=== PATIENT | female | born 1970 | race American Indian/Alaskan Native ===

== ENCOUNTER 2020-09-11 21:41 | Emergency (ER) | payer BC ==
[2020-09-11 21:55] VITALS: BP 137/63
--- NOTE | 2020-09-11 22:20 | Emergency Department Report ---
ED General Adult HPI - General Chief complaint: Skin Rash Stated complaint: SPIDER BITE/RT LEG Source: patient Mode of arrival: Ambulatory Limitations: No Limitations - History of Present Illness Initial comments: Patient is a 49-year-old -[place] female with a history of morbid obesity, hypertension and asthma who presents to the ED with acute onset persistent painful, swollen, erythematous maculopapular rash on anterior right lower leg for the last 6 days. Patient states that the rash initially started as a small papule but which has since gotten worse. Patient states that the pain is especially worse with movement. Patient denies fever, chills, nausea, vomiting, diarrhea, dizziness, syncope, traumatic injury, fall, numbness and tingling or weakness of lower extremities bilaterally. MD Complaint: Painful swollen erythematous maculopapular rash on anterior right lower leg -: Sudden, days(s) (6) Location: lower extremity (Anterior right lower leg) Radiation: non-radiation Severity scale (0 -10): 7 Quality: burning, aching, sharp Consistency: constant Improves with: none Worsens with: movement Associated Symptoms: denies other symptoms, rash (Swollen, painful, erythematous maculopapular nonfluctuant rash on anterior right lower leg). denies: confusion, chest pain, cough, diaphoresis, fever/chills, headaches, loss of appetite, malaise, nausea/vomiting, shortness of breath, syncope, weakness, other Treatments Prior to Arrival: none - Related Data Previous Rx's Medication Instructions Recorded Last Taken Type Ibuprofen [Motrin] 800 mg PO Q8HR PRN #30 tablet 09/11/20 Unknown Rx Sulfamethoxazole/Trimethoprim 1 each PO Q12H #20 tablet 09/11/20 Unknown Rx [Bactrim DS TAB] Allergies Allergy/AdvReac Type Severity Reaction Status Date / Time No Known Allergies Allergy Unverified 09/11/20 21:55 ED Review of Systems ROS: Stated complaint: SPIDER BITE/RT LEG Other details as noted in HPI Constitutional: denies: chills, fever Eyes: denies: eye pain, eye discharge, vision change ENT: denies: ear pain, throat pain Respiratory: denies: cough, shortness of breath, wheezing Cardiovascular: denies: chest pain, palpitations Endocrine: no symptoms reported Gastrointestinal: denies: abdominal pain, nausea, diarrhea Genitourinary: denies: urgency, dysuria, discharge Musculoskeletal: joint swelling, arthralgia (Anterior right lower leg pain due to erythematous maculopapular rash). denies: back pain Skin: rash (Painful, erythematous, swollen maculopapular rash on anterior right lower leg), change in color. denies: lesions Neurological: denies: headache, weakness, paresthesias Psychiatric: denies: anxiety, depression Hematological/Lymphatic: denies: easy bleeding, easy bruising ED Past Medical Hx - Past Medical History Previous Medical History?: Yes Hx Hypertension: Yes Hx Asthma: Yes Additional medical history: herat murmur - Surgical History Past Surgical History?: Yes Additional Surgical History: total hysterectomy - Social History Smoking Status: Never Smoker - Medications Home Medications: Home Medications Medication Instructions Recorded Confirmed Last Taken Type Ibuprofen [Motrin] 800 mg PO Q8HR PRN #30 tablet 09/11/20 Unknown Rx Sulfamethoxazole/Trimethoprim 1 each PO Q12H #20 tablet 09/11/20 Unknown Rx [Bactrim DS TAB] ED Physical Exam - General Limitations: No Limitations General appearance: alert, in no apparent distress - Head Head exam: Present: atraumatic, normocephalic, normal inspection - Eye Eye exam: Present: normal appearance, PERRL, EOMI Pupils: Present: normal accommodation - ENT ENT exam: Present: normal exam, normal orophraynx, mucous membranes moist, TM's normal bilaterally, normal external ear exam - Neck Neck exam: Present: normal inspection, full ROM - Respiratory Respiratory exam: Present: normal lung sounds bilaterally. Absent: respiratory distress, wheezes, rales, rhonchi, chest wall tenderness, accessory muscle use, decreased breath sounds, prolonged expiratory - Cardiovascular Cardiovascular Exam: Present: regular rate, normal rhythm, normal heart sounds. Absent: systolic murmur, diastolic murmur, rubs, gallop - GI/Abdominal GI/Abdominal exam: Present: soft, normal bowel sounds. Absent: tenderness, guarding, hyperactive bowel sounds, hypoactive bowel sounds, organomegaly - Extremities Exam Extremities exam: Present: normal inspection, full ROM, tenderness (Palpable localized anterior right lower leg tenderness due to a mildly swollen erythematous maculopapular nonfluctuant rash), normal capillary refill. Absent: pedal edema, joint swelling, calf tenderness - Back Exam Back exam: Present: normal inspection, full ROM. Absent: tenderness, CVA tenderness (R), CVA tenderness (L), muscle spasm, paraspinal tenderness, vertebral tenderness - Neurological Exam Neurological exam: Present: alert, oriented X3, CN II-XII intact, normal gait, reflexes normal - Psychiatric Psychiatric exam: Present: normal affect, normal mood - Skin Skin exam: Present: warm, dry, intact, rash (Swollen, erythematous, maculopapular nonfluctuant rash on anterior right lower leg with localized tenderness), erythema. Absent: normal color ED Course Vital Signs 09/11/20 21:53 Temperature 98.6 F Pulse Rate 81 Respiratory 22 Rate Blood Pressure 137/63 O2 Sat by Pulse 97 Oximetry ED Medical Decision Making - Medical Decision Making This is a 49-year-old -[place] female with a history of morbid obesity, hypertension and asthma who presents to the ED with acute onset persistent painful, swollen, erythematous maculopapular rash on anterior right lower leg for the last 6 days. Patient states that the rash initially started as a small papule but which has since gotten worse. Patient states that the pain is especially worse with movement. In the ED, patient is alert and oriented x3 and is not in any distress. Patient will discharge home on medications based on physical exam findings of localized anterior right lower leg cellulitis. Patient was advised to follow-up with her primary care physician in 7 to 10 days for reevaluation or return to the ED immediately if symptoms get worse. - Differential Diagnosis Cellulitis; folliculitis; insect bite; cutaneous abscess Critical care attestation.: If time is entered above; I have spent that time in minutes in the direct care of this critically ill patient, excluding procedure time. ED Disposition Clinical Impression: Acute folliculitis, Cellulitis of right lower extremity Disposition: DC-01 TO HOME OR SELFCARE Is pt being admited?: No Does the pt Need Aspirin: No Condition: Stable Instructions: Cellulitis, Adult, [id number], Folliculitis Additional Instructions: Take medications with food, drink plenty of fluids and follow-up with your primary care physician in 7 to 10 days for reevaluation. Return to the ED immediately if symptoms get worse. Prescriptions: Sulfamethoxazole/Trimethoprim [Bactrim DS TAB] 1 each PO Q12H #20 tablet Ibuprofen [Motrin] 800 mg PO Q8HR PRN #30 tablet PRN Reason: Severe pain Referrals: [facility] [Provider Group] - 7-10 days Time of Disposition: 22:21 Print Language: ROMANIAN
== END 2020-09-11 22:55 | disposition home or self-care (01) ==
LOC: ED 21:41
DX: L73.9 Follicular disorder, unspecified (principal); L03.115 Cellulitis of right lower limb; I10 Essential (primary) hypertension; J45.909 Unspecified asthma, uncomplicated; Z98.890 Other specified postprocedural states; Z90.710 Acquired absence of both cervix and uterus; Z79.899 Other long term (current) drug therapy
CPT/HCPCS: 99281

== ENCOUNTER 2021-03-10 18:45 | Emergency (ER) | payer BC ==
--- NOTE | 2021-03-10 20:39 | Emergency Department Report ---
ED Abdominal Pain HPI - General Chief Complaint: Abdominal Pain Stated Complaint: CHEST/ABD PAIN Time Seen by Provider: 03/10/21 20:33 Source: patient Mode of arrival: Ambulatory Limitations: No Limitations - History of Present Illness Initial Comments: A 50-year-old Female with history of obesity, asthma, hypertension, renal stones, and reflux disease patient presents with epigastric pain radiating to right flank x3 days with nausea and vomiting. Patient does have history of renal stones but denies hematuria no dysuria frequency or urgency. Patient states recent diagnosis of COVID on February 17, 2021. Patient denies shortness of breath no wheezing no stridor. Pain is rated at 5/10 exacerbated by movement and p.o. intake. Pain is relieved by nothing tried. Last p.o. intake this evening without nausea vomiting. MD Complaint: abdominal pain, flank pain - Related Data Previous Rx's Medication Instructions Recorded Last Taken Type Sulfamethoxazole/Trimethoprim 1 each PO Q12H #20 tablet 09/11/20 Unknown Rx [Bactrim DS TAB] Ibuprofen [Motrin 800 MG tab] 800 mg PO Q8HR PRN #30 tablet 03/11/21 Unknown Rx Omeprazole 40 mg PO DAILY #20 03/11/21 Unknown Rx Allergies Allergy/AdvReac Type Severity Reaction Status Date / Time No Known Allergies Allergy Verified 03/10/21 20:13 ED Review of Systems ROS: Stated complaint: CHEST/ABD PAIN Other details as noted in HPI Constitutional: denies: chills, fever Eyes: denies: eye pain, eye discharge, vision change ENT: congestion. denies: ear pain, throat pain Respiratory: cough. denies: shortness of breath, stridor, wheezing Cardiovascular: chest pain (epigastric). denies: palpitations, orthopnea, parox ysmal nocturnal dyspnea Endocrine: no symptoms reported Gastrointestinal: abdominal pain, nausea, vomiting. denies: diarrhea, constipation, hematemesis, melena Genitourinary: denies: urgency, dysuria, frequency, hematuria, discharge Musculoskeletal: back pain. denies: myalgia Skin: denies: rash, lesions Neurological: denies: headache, weakness, paresthesias Psychiatric: denies: anxiety, depression Hematological/Lymphatic: denies: easy bleeding, easy bruising ED Past Medical Hx - Past Medical History Hx Hypertension: Yes Hx Asthma: Yes Additional medical history: herat murmur - Surgical History Additional Surgical History: total hysterectomy - Social History Smoking Status: Never Smoker - Medications Home Medications: Home Medications Medication Instructions Recorded Confirmed Last Taken Type Sulfamethoxazole/Trimethoprim 1 each PO Q12H #20 tablet 09/11/20 Unknown Rx [Bactrim DS TAB] Ibuprofen [Motrin 800 MG tab] 800 mg PO Q8HR PRN #30 tablet 03/11/21 Unknown Rx Omeprazole 40 mg PO DAILY #20 03/11/21 Unknown Rx ED Physical Exam - General Limitations: No Limitations General appearance: alert, in no apparent distress - Head Head exam: Present: normocephalic, normal inspection - Eye Eye exam: Present: EOMI Pupils: Present: normal accommodation - ENT ENT exam: Present: mucous membranes moist - Neck Neck exam: Present: normal inspection, full ROM. Absent: tenderness, lymphadenopathy - Respiratory Respiratory exam: Present: normal lung sounds bilaterally. Absent: respiratory distress, wheezes, stridor, chest wall tenderness - Cardiovascular Cardiovascular Exam: Present: regular rate, normal rhythm, normal heart sounds. Absent: systolic murmur, diastolic murmur, rubs, gallop - GI/Abdominal GI/Abdominal exam: Present: soft, tenderness (mild ruq tenderness to deep palpation), normal bowel sounds. Absent: distended, guarding, rebound, rigid, bruit, hernia - Expanded GI/Abdominal Exam Expanded GI/Abdominal exam: Present: Subramanian's sign. Absent: psoas sign, obturator sign, heel tap sign, Rovsing's sign, tenderness at [place]'s Point, ascites - Rectal Rectal exam: Present: deferred - Extremities Exam Extremities exam: Present: normal inspection, full ROM. Absent: tenderness - Back Exam Back exam: Present: normal inspection, full ROM. Absent: CVA tenderness (R), CVA tenderness (L) - Neurological Exam Neurological exam: Present: alert, oriented X3, CN II-XII intact, normal gait - Psychiatric Psychiatric exam: Present: normal affect, normal mood - Skin Skin exam: Present: warm, dry, intact, normal color. Absent: rash ED Course Vital Signs 03/10/21 03/10/21 20:11 23:54 Temperature 98.0 F Pulse Rate 69 Respiratory 18 12 Rate Blood Pressure 130/64 O2 Sat by Pulse 99 Oximetry ED Medical Decision Making - Lab Data Result diagrams: 03/10/21 20:45 03/10/21 20:45 Labs 03/10/21 03/10/21 03/10/21 20:45 20:45 20:45 WBC 7.3 RBC 4.41 Hgb 13.3 Hct 40.6 MCV 92 MCH 30 MCHC 33 RDW 13.4 Plt Count 287 Lymph % (Auto) 30.0 [place] % (Auto) 6.3 Eos % (Auto) 1.6 Baso % (Auto) 0.4 Lymph # (Auto) 2.2 [place] # (Auto) 0.5 Eos # (Auto) 0.1 Baso # (Auto) 0.0 Seg Neutrophils % 61.7 Seg Neutrophils # 4.5 Sodium 142 Potassium 4.3 Chloride 103.3 Carbon Dioxide 26 Anion Gap 17 BUN 13 Creatinine 0.6 Estimated GFR > 60 BUN/Creatinine Ratio 22 Glucose 104 H Calcium 9.1 Total Bilirubin 0.50 AST 15 ALT 13 Alkaline Phosphatase 97 Troponin T < 0.010 Total Protein 7.1 Albumin 4.2 Albumin/Globulin Ratio 1.4 Lipase 14 Urine Color Urine Turbidity Urine pH Ur Specific [place] Urine Protein Urine Glucose (UA) Urine Ketones Urine Blood Urine Nitrite Urine Bilirubin Urine Urobilinogen Ur Leukocyte Esterase Urine WBC (Auto) Urine RBC (Auto) U Epithel Cells (Auto) Urine Mucus 03/10/21 03/10/21 22:53 Unknown WBC RBC Hgb Hct MCV MCH MCHC RDW Plt Count Lymph % (Auto) [place] % (Auto) Eos % (Auto) Baso % (Auto) Lymph # (Auto) [place] # (Auto) Eos # (Auto) Baso # (Auto) Seg Neutrophils % Seg Neutrophils # Sodium Potassium Chloride Carbon Dioxide Anion Gap BUN Creatinine Estimated GFR BUN/Creatinine Ratio Glucose Calcium Total Bilirubin AST ALT Alkaline Phosphatase Troponin T < 0.010 Total Protein Albumin Albumin/Globulin Ratio Lipase Urine Color Yellow Urine Turbidity Clear Urine pH 5.0 Ur Specific [place] 1.026 Urine Protein <15 mg/dl Urine Glucose (UA) Neg Urine Ketones Neg Urine Blood Neg Urine Nitrite Neg Urine Bilirubin Neg Urine Urobilinogen < 2.0 Ur Leukocyte Esterase Neg Urine WBC (Auto) 2.0 Urine RBC (Auto) 2.0 U Epithel Cells (Auto) 1.0 Urine Mucus 1+ - EKG Data EKG shows normal: sinus rhythm, axis, intervals, QRS complexes, ST-T waves Rate: normal - EKG Data When compared to previous EKG there are: previous EKG unavailable Interpretation: normal EKG (NSR No STEMI interp by ed attending ) - Radiology Data Radiology results: report reviewed, image reviewed CHEST 2 VIEWS INDICATION / CLINICAL INFORMATION: chest pain. Pt c/o abd, back and chest pain x 1 week. Pt states today she had all of the symptoms with vomiting and the pain did not go away. hx asthma, htn COMPARISON: None available. FINDINGS: SUPPORT DEVICES: None. HEART / MEDIASTINUM: No significant abnormality. LUNGS / PLEURA: No significant pulmonary or pleural abnormality. No pneumothorax. ADDITIONAL FINDINGS: No significant additional findings. IMPRESSION: 1. No acute findings. Signer Name: Melody Perdomo MD Signed: 03/10/2021 8:53 PM Workstation Name: [id number] Transcribed By: DT Dictated By: Jono Perdomo MD Electronically Authenticated By: Jono Perdomo MD Signed Date/Time: 03/10/212052 - Medical Decision Making Heart score 0, ekg: NSR no STEMI, CXCR normal no infiltrates no opacities. labs are normal, pain is improved, pt is tolerating po intake , plan dc to home with rx, follow up with primary car doctor in 2-3 days , return to emergency if symptoms worsen. pt verbalized agreement and understanding of same. Critical care attestation.: If time is entered above; I have spent that time in minutes in the direct care of this critically ill patient, excluding procedure time. ED Disposition Clinical Impression: Abdominal pain Qualifiers: Abdominal location: epigastric Qualified Code(s): R10.13 - Epigastric pain Disposition: HOME / SELF CARE / HOMELESS Is pt being admited?: No Does the pt Need Aspirin: No Condition: Stable Instructions: Abdominal Pain (ED), Abdominal Pain, Adult, [id number] Additional Instructions: Medications as prescribed, follow-up with your doctor in 2 days. Return to emergency should symptoms worsen. Prescriptions: Ibuprofen [Motrin 800 MG tab] 800 mg PO Q8HR PRN #30 tablet PRN Reason: Severe pain Omeprazole 40 mg PO DAILY #20 Referrals: PRIMARY CARE, [Primary Care Provider] - 3-5 Days Forms: Work/School Release Form(ED)
--- NOTE | 2021-03-10 20:57 | XRay Report ---
CHEST 2 VIEWS INDICATION / CLINICAL INFORMATION: chest pain. Pt c/o abd, back and chest pain x 1 week. Pt states to day she had all of the symptoms with vomiting and the pain did not go away. hx asthma, htn COMPARISON: None available. FINDINGS: SUPPORT DEVICES: None. HEART / MEDIASTINUM: No significant abnormality. LUNGS / PLEURA: No significant pulmonary or pleural abnormality. No pneumothorax. ADDITIONAL FINDINGS: No significant additional findings. IMPRESSION: 1. No acute findings. Signer Name: Melody Perdomo MD Signed: 03/10/2021 8:53 PM Workstation Name: [id number]
[2021-03-10 21:16] LABS: Basophils % (Auto) 0.4 % (0.0-1.8); Eosinophils # (Auto) 0.1 K/mm3 (0.0-0.4); Eosinophils % (Auto) 1.6 % (0.0-4.3); Hematocrit 40.6 % (30.3-42.9); Hemoglobin 13.3 gm/dl (10.1-14.3); Lymphocytes # (Auto) 2.2 K/mm3 (1.2-5.4); Mean Corpuscular HGB Conc 33 % (30-34); Mean Corpuscular Volume 92 fl (79-97); Monocytes # (Auto) 0.5 K/mm3 (0.0-0.8); Monocytes % (Auto) 6.3 % (0.0-7.3); Platelet Count 287 K/mm3 (140-440); Red Blood Count 4.41 M/mm3 (3.65-5.03); Red Cell Distribution Width 13.4 % (13.2-15.2)
[2021-03-10 21:37] LABS: Alanine Aminotransferase 13 units/L (7-56); Albumin 4.2 g/dL (3.9-5); Blood Urea Nitrogen 13 mg/dL (7-17); Calcium 9.1 mg/dL (8.4-10.2); Hemolysis Index 12
[2021-03-10 21:39] LABS: BUN/Creatinine Ratio 22
[2021-03-10 22:24] LABS: Bilirubin,Urine NEG (Negative); Blood,Urine NEG (Negative); Color,Urine Yellow (Yellow); Mucus,Urine 1+ /HPF; Protein,Urine <15 mg/dL mg/dL (Negative); Urobilinogen,Urine < 2.0 mg/dL (<2.0)
[2021-03-10] MEDS ORDERED: traMADol 50 MG TAB PO ONE (23:10)
[2021-03-11] MEDS ORDERED: ONDANSETRON 4 MG ODT TAB PO ONE (00:13)
[2021-03-11 03:49] VITALS: BP 108/67
--- NOTE | 2021-03-11 11:09 | Electrocardiograph Report ---
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
== END 2021-03-11 03:49 | disposition home or self-care (01) ==
LOC: ED 18:45
DX: R10.13 Epigastric pain (principal); J45.909 Unspecified asthma, uncomplicated; I10 Essential (primary) hypertension; Z90.710 Acquired absence of both cervix and uterus
CPT/HCPCS: 36415; 71046; 80053; 81001; 83690; 84484; 85025; 93005; 99284; J3490; Q0162